=== PATIENT | female | born 1970 ===

== ENCOUNTER 2018-10-08 06:12 | Inpatient (IN) | payer SELFPAY ==
[2018-10-08 07:16] LABS: Basophils # (Auto) 0.1 K/mm3 (0.0-0.1); Basophils % (Auto) 1.1 % (0.0-1.8); Eosinophils # (Auto) 0.3 K/mm3 (0.0-0.4); Eosinophils % (Auto) 2.7 % (0.0-4.3); Hematocrit 29.8 % (30.3-42.9); Hemoglobin 9.6 gm/dl (10.1-14.3); Lymphocytes # (Auto) 1.3 K/mm3 (1.2-5.4); Lymphocytes % (Auto) 12.5 % (13.4-35.0); Mean Corpuscular HGB Conc 32 % (30-34); Monocytes # (Auto) 0.6 K/mm3 (0.0-0.8); Monocytes % (Auto) 5.7 % (0.0-7.3); Platelet Count 499 K/mm3 (140-440); Red Blood Count 4.48 M/mm3 (3.65-5.03)
[2018-10-08 07:18] LABS: Mean Corpuscular Volume 66 fl (79-97)
[2018-10-08] MEDS ORDERED: NITRO-BID 2% TP ONE (07:29)
[2018-10-08 07:35] LABS: Albumin 4.1 g/dL (3.9-5); Calcium 9.2 mg/dL (8.4-10.2)
[2018-10-08] MEDS ORDERED: LASIX IV ONE (07:38)
[2018-10-08] MEDS ORDERED: NORCO 5/325 PO ONE (07:39)
--- NOTE | 2018-10-08 07:43 | Emergency Department Report ---
ED Shortness of Breath HPI - General Chief Complaint: Dyspnea/Respdistress Stated Complaint: SOB Time Seen by Provider: 10/08/18 07:27 Source: patient, old records reviewed Mode of arrival: Ambulatory Limitations: No Limitations - History of Present Illness Initial Comments: 48-year-old female has had a history of CHF with most recent EF on echocardiogr am of 35-40%, severe concentric LDH, hypertension, previous CVA presents complaining of shortness of breath since last night. Patient woke up this shortness of breath orthopnea, PND, dyspnea on exertion. She has a cough productive of clear sputum since yesterday she took Mucinex D to help with her symptoms thinks that exacerbated her breathing. She feels like the mucous production has decreased taken his medication. She has been out of her Lasix for 2 months. She stopped her losartan 2 months ago due to a a recall in the medication and did not follow-up with her doctor for medication placement. She is compliant with her other medication. Primary care doctor [facility]. [employer] affiliated with [facility] As per medical record patient had a cardiac cath during her admission here February 2018 that showed normal coronary arteries. - Related Data Previous Rx's Medication Instructions Recorded Last Taken Type Aspirin [Aspirin BABY CHEW TAB] 81 mg PO QDAY #30 tab.chew 02/23/18 Unknown Rx Carvedilol [Coreg] 25 mg PO BID #60 tablet 02/23/18 Unknown Rx Furosemide [Lasix TAB] 20 mg PO QDAY #30 tablet 02/23/18 Unknown Rx HYDROcodone/APAP 5-325 [[place] 2 each PO Q6H PRN #12 tablet 02/23/18 Unknown Rx 5-325 mg TAB] Losartan [Cozaar] 100 mg PO QDAY #30 tablet 02/23/18 Unknown Rx Pantoprazole [Protonix TAB] 40 mg PO QDAY #30 tablet 02/23/18 Unknown Rx Spironolactone [Aldactone] 25 mg PO QDAY #30 tablet 02/23/18 Unknown Rx amLODIPine [Norvasc] 10 mg PO QDAY #30 tablet 02/23/18 Unknown Rx Allergies Allergy/AdvReac Type Severity Reaction Status Date / Time shellfish derived Allergy Unknown Verified 02/22/18 09:55 lisinopril AdvReac cough Verified 02/19/18 07:55 ED Review of Systems ROS: Stated complaint: SOB Other details as noted in HPI Comment: All other systems reviewed and negative ED Past Medical Hx - Past Medical History Previous Medical History?: Yes Hx Hypertension: Yes Hx CVA: Yes Hx Congestive Heart Failure: Yes Hx Diabetes: No Hx Asthma: No Hx COPD: No Hx Dementia: No Hx HIV: No - Surgical History Past Surgical History?: Yes Additional Surgical History: tubal ligation - Social History Smoking Status: Never Smoker Substance Use Type: None - Medications Home Medications: Home Medications Medication Instructions Recorded Confirmed Last Taken Type Aspirin [Aspirin BABY CHEW TAB] 81 mg PO QDAY #30 tab.chew 02/23/18 Unknown Rx Carvedilol [Coreg] 25 mg PO BID #60 tablet 02/23/18 Unknown Rx Furosemide [Lasix TAB] 20 mg PO QDAY #30 tablet 02/23/18 Unknown Rx HYDROcodone/APAP 5-325 [[place] 2 each PO Q6H PRN #12 tablet 02/23/18 Unknown Rx 5-325 mg TAB] Losartan [Cozaar] 100 mg PO QDAY #30 tablet 02/23/18 Unknown Rx Pantoprazole [Protonix TAB] 40 mg PO QDAY #30 tablet 02/23/18 Unknown Rx Spironolactone [Aldactone] 25 mg PO QDAY #30 tablet 02/23/18 Unknown Rx amLODIPine [Norvasc] 10 mg PO QDAY #30 tablet 02/23/18 Unknown Rx ED Physical Exam - General Limitations: No Limitations - Other Other exam information: General: No limitations, patient is alert in no acute distress Head exam: Atraumatic, normocephalic Eyes exam: Normal appearance ENT: Moist mucous membrane, normal oropharynx Neck exam: Normal inspection, full range of motion, no meningismus nontender Respiratory exam: No tachypnea or accessory muscle use at rest and while oxygen. Mild right sided intermittent wheezing Cardiovascular: Normal rate and rhythm, normal heart sounds Abdomen: Soft, nondistended, and nontender, with normal bowel sounds, no rebound, or guarding Extremity: Full range of motion normal inspection no deformity, no calf tenderness or edema Back: Normal Inspection, full range of motion, no tenderness Neurologic: Alert, oriented x3, cranial nerves intact, no motor or sensory d eficit Psychiatric: normal affect, normal mood Skin: Warm, dry, intact ED Course Vital Signs 10/08/18 10/08/18 06:15 06:32 Temperature 98.1 F Pulse Rate 109 H Respiratory 20 28 H Rate Blood Pressure 215/149 O2 Sat by Pulse 98 Oximetry ED Medical Decision Making - Lab Data Result diagrams: 10/08/18 06:47 10/08/18 06:47 Lab Results 10/08/18 10/08/18 10/08/18 Range/Units 06:47 06:47 06:47 WBC 10.5 (4.5-11.0) K/mm3 RBC 4.48 (3.65-5.03) M/mm3 Hgb 9.6 L (10.1-14.3) gm/dl Hct 29.8 L (30.3-42.9) % MCV 66 L (79-97) fl MCH 22 L (28-32) pg MCHC 32 (30-34) % RDW 20.0 H (13.2-15.2) % Plt Count 499 H (140-440) K/mm3 Lymph % (Auto) 12.5 L (13.4-35.0) % [place] % (Auto) 5.7 (0.0-7.3) % Eos % (Auto) 2.7 (0.0-4.3) % Baso % (Auto) 1.1 (0.0-1.8) % Lymph # 1.3 (1.2-5.4) K/mm3 [place] # 0.6 (0.0-0.8) K/mm3 Eos # 0.3 (0.0-0.4) K/mm3 Baso # 0.1 (0.0-0.1) K/mm3 Seg Neutrophils % 78.0 H (40.0-70.0) % Seg Neutrophils # 8.2 H (1.8-7.7) K/mm3 Sodium 140 (137-145) mmol/L Potassium 4.1 (3.6-5.0) mmol/L Chloride 105.1 (98-107) mmol/L Carbon Dioxide 22 (22-30) mmol/L Anion Gap 17 mmol/L BUN 15 (7-17) mg/dL Creatinine 1.1 (0.7-1.2) mg/dL Estimated GFR 53 ml/min BUN/Creatinine Ratio 14 % Glucose 104 H (65-100) mg/dL Calcium 9.2 (8.4-10.2) mg/dL Total Bilirubin 0.40 (0.1-1.2) mg/dL AST 10 (5-40) units/L ALT 8 (7-56) units/L Alkaline Phosphatase 75 (35-129) units/L Troponin T < 0.010 (0.00-0.029) ng/mL NT-Pro-B Natriuret Pep 1980 H (0-450) pg/mL Total Protein 7.1 (6.3-8.2) g/dL Albumin 4.1 (3.9-5) g/dL Albumin/Globulin Ratio 1.4 % - EKG Data -: EKG Interpreted by Ok EKG shows normal: sinus rhythm, axis (qrs 34), QRS complexes (qrsd 93), ST-T waves (no stemi, pvcs, lat t wave inv, lvh) Rate: normal (97) - EKG Data When compared to previous EKG there are: no significant change - Radiology Data Radiology results: report reviewed PROCEDURE: XR CHEST 1V AP TECHNIQUE: Chest radiograph single view. HISTORY: SOB COMPARISONS: 02/19/2018 . FINDINGS: No mediastinal shift. Cardiac silhouette is not enlarged. No pneumothorax or effusion. Patchy right basilar and perihilar opacities. No acute skeletal findings. IMPRESSION: Patchy right basilar and perihilar opacities may be infectious. Pulmonary scarring and superimposition of structures could appear similar. Consider PA and lateral chest radiographic follow-up. - Medical Decision Making pt with elevated high blood pressure history of CHF and diuretic and BP medication noncompliance. Treated with Nitropaste and IV Lasix. Chest x-ray report suggestive of possible right-sided infiltrate. Patient cultured and Rocephin and azithromycin ordered. One DuoNeb ordered for mild wheezing. Plan to admit to the hospitalist service for further management. - Differential Diagnosis CHF, bronchitis, pneumonia Critical Care Time: No Critical care attestation.: If time is entered above; I have spent that time in minutes in the direct care of this critically ill patient, excluding procedure time. ED Disposition Clinical Impression: Acute exacerbation of CHF (congestive heart failure), Pneumonia, Uncontrolled hypertension, Noncompliance with medication regimen Disposition: OP ADMIT IP TO THIS HOSP Is pt being admited?: Yes Condition: Stable Time of Disposition: 08:14 (DR Fay/[facility])
--- NOTE | 2018-10-08 07:47 | XRay Report ---
PROCEDURE: XR CHEST 1V AP TECHNIQUE: Chest radiograph single view. HISTORY: SOB COMPARISONS: 02/19/2018 . FINDINGS: No mediastinal shift. Cardiac silhouette is not enlarged. No pneumothorax or effusion. Patchy right b asilar and perihilar opacities. No acute skeletal findings. IMPRESSION: Patchy right basilar and perihilar opacities may be infectious. Pulmonary scarring and superimpositio n of structures could appear similar. Consider PA and lateral chest radiographic follow-up. This document is electronically signed by Ernesto Dunn MD., October 08 2018 07:45:22 AM ET
[2018-10-08] MEDS ORDERED: ROCEPHIN/NS 1 GM/50 ML 1 GM/50 ML BAG IV ONE (07:56)
[2018-10-08] MEDS ORDERED: ZITHROMAX 500 MG in NACL 0.9% 250ML 250 ML IV ONE (07:56)
[2018-10-08] MEDS ORDERED: DUONEB *Not for PRN Use IH ONE (07:57)
--- NOTE | 2018-10-08 10:25 | History and Physical Report ---
History of Present Illness Date of examination: 10/08/18 Date of admission: 10/08/18 Chief complaint: SOB History of present illness: 48-year-old female has had a history of CHF with most recent EF on echocardiogram of 35-40%, severe concentric LDH, hypertension, previous CVA presented with complaining of shortness of breath since last night and a cough productive of clear sputum since yesterday. Patient woke up this morning with shortness of breath orthopnea. She took Mucinex D to help with her symptoms but thinks that exacerbated her breathing. She has been out of her Lasix for 2 months, stopped her losartan 2 months ago and did not follow-up with her doctor for medication placement. She denies any fever or chills. She is getting admitted for CHF exacerbation. Past History Past Medical History: hypertension, CHF Past Surgical History: Tubal ligation Social history: denies: smoking, alcohol abuse, prescription drug abuse Family history: other (Mother - CHF) Review of System: Constitutional: no fever, no chills, no weight loss Ears, eyes, nose, mouth and throat: no nasal congestion, no nasal discharge, no sinus pressure, no vision change, no red eye. Neck: No neck pain or rigidity. Cardiovascular: No chest pain, + orthopnea, no palpitations, no leg swelling Respiratory: +shortness of breath, + cough, no congestion, no wheezing Gastrointestinal: no abdominal pain, no nausea, no vomiting Genitourinary : no dysuria, no hematuria Musculoskeletal: no joint swelling or muscle ache Integumentary: no rash, no pruritis Neurological: no parathesias, no numbness, no tingling Endocrine: no cold or heat intolerance, no polyuria or polydipsia Hematologic/Lymphatic: no easy bruising, no easy bleeding, no gland swelling Allergic/Immunologic: no urticaria, no angioedema. Medications and Allergies Allergies Allergy/AdvReac Type Severity Reaction Status Date / Time shellfish derived Allergy Unknown Verified 02/22/18 09:55 lisinopril AdvReac cough Verified 02/19/18 07:55 Home Medications Medication Instructions Recorded Confirmed Last Taken Type Aspirin [Aspirin BABY CHEW TAB] 81 mg PO QDAY #30 tab.chew 10/09/18 Unknown Rx AtorvaSTATin [Lipitor] 40 mg PO QHS #30 tab 10/09/18 Unknown Rx Carvedilol [Coreg] 25 mg PO BID #60 tablet 10/09/18 Unknown Rx Furosemide [Lasix TAB] 20 mg PO QDAY #30 tablet 10/09/18 Unknown Rx Losartan [Cozaar] 100 mg PO QDAY #30 tablet 10/09/18 Unknown Rx Pantoprazole [Protonix TAB] 40 mg PO QDAY #30 tablet 10/09/18 Unknown Rx Spironolactone [Aldactone] 25 mg PO QDAY #30 tablet 10/09/18 Unknown Rx amLODIPine [Norvasc] 10 mg PO QDAY #30 tablet 10/09/18 Unknown Rx Exam - Physical Exam Narrative exam: GENERAL: well-developed and obese Female lying on bed appeared to be in no discomfort. HEENT: Normocephalic. Atraumatic. No conjunctival congestion or icterus. Patient has moist mucous membranes. NECK: Supple. Trachea midline. CHEST/LUNGS: few crackles auscultated bilaterally, breathing nonlabored. No wheezes. HEART/CARDIOVASCULAR: Regular in rate and rhythm. S1 and S2 positive. ABDOMEN: Abdomen is soft, nontender. Patient has normal bowel sounds. SKIN: There is no rash. Warm and dry. NEURO: No focal motor deficit. Follows command. MUSCULOSKELETAL: No joint effusion or tenderness. EXTRIMITY: No edema, no cyanosis or clubbing. PSYCH: Cooperative. - Constitutional Vitals: Temp Pulse Resp BP Pulse Ox 98.1 F 78 15 143/89 93 10/08/18 06:15 10/08/18 10:00 10/08/18 10:00 10/08/18 10:00 10/08/18 10:00 Results - Labs CBC & Chem 7: 10/08/18 06:47 10/09/18 05:01 Labs: Abnormal lab results 10/08/18 10/08/18 Range/Units 06:47 06:47 Hgb 9.6 L (10.1-14.3) gm/dl Hct 29.8 L (30.3-42.9) % MCV 66 L (79-97) fl MCH 22 L (28-32) pg RDW 20.0 H (13.2-15.2) % Plt Count 499 H (140-440) K/mm3 Lymph % (Auto) 12.5 L (13.4-35.0) % Seg Neutrophils % 78.0 H (40.0-70.0) % Seg Neutrophils # 8.2 H (1.8-7.7) K/mm3 Glucose 104 H (65-100) mg/dL NT-Pro-B Natriuret Pep 1980 H (0-450) pg/mL - Imaging and Cardiology Chest x-ray: report reviewed Assessment and Plan /Acute combined systolic and diastolic heart failure ECHO reveals sys fxn mod decreased with EF 35-40%, severe concentric LVH - on 02/26 will consult Cardiology, Fluid restriction to 1500 mL per day, iv diuretics, monitor ins/os left cardiac cath on last admission showed normal coronaries /Hypertension, accelerated. continue amlodipine in addition to ARB, hold BB for now /Possible RLL PNA, cont levaquin for now /Microcytic anemia Most likely iron deficiency anemia based on previous work up, monitor h/h /medication noncompliance, counseled /DVT prophylaxis with lovenox subcutaneous Radiological data: CXR: Patchy right basilar and perihilar opacities may be infectious. Pulmonary scarring and superimposition of structures could appear similar. Consider PA and lateral chest radiographic follow-up.
--- NOTE | 2018-10-08 10:25 | Progress Note ---
Subjective Date of service: 10/08/18 Objective - Constitutional Vitals: Vital Signs - 12hr 10/08/18 10/08/18 10/08/18 06:15 06:32 07:32 Temperature 98.1 F Pulse Rate 109 H 95 H Respiratory 20 28 H 18 Rate Blood Pressure 215/149 O2 Sat by Pulse 98 98 Oximetry 10/08/18 10/08/18 10/08/18 07:34 08:00 08:54 Temperature Pulse Rate 83 87 Respiratory 17 18 Rate Blood Pressure 184/131 176/116 O2 Sat by Pulse 99 Oximetry 10/08/18 10/08/18 10/08/18 09:00 09:30 10:00 Temperature Pulse Rate 98 H 83 78 Respiratory 16 15 15 Rate Blood Pressure 184/131 156/99 143/89 O2 Sat by Pulse 93 91 93 Oximetry - Labs CBC & Chem 7: 10/08/18 06:47 10/08/18 06:47 Labs: Abnormal lab results 10/08/18 10/08/18 Range/Units 06:47 06:47 Hgb 9.6 L (10.1-14.3) gm/dl Hct 29.8 L (30.3-42.9) % MCV 66 L (79-97) fl MCH 22 L (28-32) pg RDW 20.0 H (13.2-15.2) % Plt Count 499 H (140-440) K/mm3 Lymph % (Auto) 12.5 L (13.4-35.0) % Seg Neutrophils % 78.0 H (40.0-70.0) % Seg Neutrophils # 8.2 H (1.8-7.7) K/mm3 Glucose 104 H (65-100) mg/dL NT-Pro-B Natriuret Pep 1980 H (0-450) pg/mL
[2018-10-08] MEDS ORDERED: BABY ASPIRIN ONE (11:03)
--- NOTE | 2018-10-08 11:36 | Consultation ---
History of Present Illness Consult date: 10/08/18 Requesting physician: ALEJANDRO RODRIGUEZ Consult reason: congestive heart failure History of present illness: Ms. Ferrera is a 48 y/o female with a history of chronic HFrEF, hypertension and a prior CVA who presented to the ED with SOB that worsened over the past day with minimal activity. She does not regularly follow with a provider in our office, but is known to us from a previous stay at [facility]. She denies CP and swelling. She has been compliant with her medication regimen with the exception of losartan - she received notice that her batch of this drug was on recall, but she was never prescribed an alternative. In the ED, a CXR was suspicious for pneumonia and her EKG was unremarkable. She received a dose of Lasix in the ED, which improved her breathing. An echocardiogram on 02/20/2018 found an EF of 35 to 40 percent and severe concentric LVH. A cardiac catheterization on 02/19/2018 found normal coronaries. Past History Past Medical History: heart failure, hypertension, stroke (h/o) Medications and Allergies Allergies Allergy/AdvReac Type Severity Reaction Status Date / Time shellfish derived Allergy Unknown Verified 02/22/18 09:55 lisinopril AdvReac cough Verified 02/19/18 07:55 Home Medications Medication Instructions Recorded Confirmed Last Taken Type Aspirin [Aspirin BABY CHEW TAB] 81 mg PO QDAY #30 tab.chew 02/23/18 Unknown Rx Carvedilol [Coreg] 25 mg PO BID #60 tablet 02/23/18 Unknown Rx Furosemide [Lasix TAB] 20 mg PO QDAY #30 tablet 02/23/18 Unknown Rx HYDROcodone/APAP 5-325 [[place] 2 each PO Q6H PRN #12 tablet 02/23/18 Unknown Rx 5-325 mg TAB] Losartan [Cozaar] 100 mg PO QDAY #30 tablet 02/23/18 Unknown Rx Pantoprazole [Protonix TAB] 40 mg PO QDAY #30 tablet 02/23/18 Unknown Rx Spironolactone [Aldactone] 25 mg PO QDAY #30 tablet 02/23/18 Unknown Rx amLODIPine [Norvasc] 10 mg PO QDAY #30 tablet 02/23/18 Unknown Rx Active Meds: Active Medications Amlodipine Besylate (Norvasc) 10 mg PO QDAY ALPESH Aspirin (Baby Aspirin) 81 mg PO QDAY ALPESH Furosemide (Lasix) 40 mg IV BID@0600,1800 ALPESH Losartan Potassium (Cozaar) 100 mg PO QDAY LAPESH Pantoprazole Sodium (Protonix) 40 mg PO QDAY ALPESH Review of Systems All systems: negative Ears, nose, mouth and throat: deferred Breasts: deferred Genitourinary Female: other (Deferred) Menstruation: other (Deferred) Rectal: other (Deferred) Physical Examination Last Vital Signs Temp 98.1 F 10/08/18 06:15 Pulse 78 10/08/18 10:00 Resp 15 10/08/18 10:00 BP 143/89 10/08/18 10:00 Pulse Ox 93 10/08/18 10:00 General appearance: no acute distress HEENT: Positive: PERRL Neck: Positive: neck supple Cardiac: Positive: Reg Rate and Rhythm Lungs: Positive: Normal Exam Neuro: Positive: Grossly Intact Abdomen: Positive: Unremarkable Female genitourinary: deferred Skin: Positive: Clear Musculoskeletal: Normal Range of Motion Extremities: Present: normal Results 10/08/18 06:47 10/08/18 06:47 Cardiac Enzymes 10/08/18 Range/Units 06:47 AST 10 (5-40) units/L CBC 10/08/18 Range/Units 06:47 WBC 10.5 (4.5-11.0) K/mm3 RBC 4.48 (3.65-5.03) M/mm3 Hgb 9.6 L (10.1-14.3) gm/dl Hct 29.8 L (30.3-42.9) % Plt Count 499 H (140-440) K/mm3 Lymph # 1.3 (1.2-5.4) K/mm3 [place] # 0.6 (0.0-0.8) K/mm3 Eos # 0.3 (0.0-0.4) K/mm3 Baso # 0.1 (0.0-0.1) K/mm3 Comprehensive Metabolic Panel 10/08/18 Range/Units 06:47 Sodium 140 (137-145) mmol/L Potassium 4.1 (3.6-5.0) mmol/L Chloride 105.1 (98-107) mmol/L Carbon Dioxide 22 (22-30) mmol/L BUN 15 (7-17) mg/dL Creatinine 1.1 (0.7-1.2) mg/dL Glucose 104 H (65-100) mg/dL Calcium 9.2 (8.4-10.2) mg/dL AST 10 (5-40) units/L ALT 8 (7-56) units/L Alkaline Phosphatase 75 (35-129) units/L Total Protein 7.1 (6.3-8.2) g/dL Albumin 4.1 (3.9-5) g/dL - Imaging and Cardiology Echo: report reviewed (EF 35 to 40%, severe concentric LVH) Cardiac cath: report reviewed (Normal coronaries) EKG interpretations - EKG Sinus rhythms and dysrhythmias: sinus rhythm Ventricular dysrhythmias: ventricular premature com Chamber hypertrophy or enlargement: left atrial enlargement, left ventricular hypertro Assessment and Plan Patient is a 48 y/o female with a history of chronic HFrEF, hypertension and a prior CVA. She presented to the ED with worsening SOB. Agree with continuing losartan, Norvasc, aspirin and Lasix. Will resume Coreg. Will hold spironolactone with administration of IV Lasix. Patient will likely need to be switched from losartan to another ARB at discharge due to recall of her batch of medicine. Will repeat echo. Patient seen in conjunction with Dr. Gould, who agrees with assessment and plan. - Patient Problems (1) Heart failure with reduced ejection fraction Current Visit: No Status: Acute (2) Pneumonia Current Visit: Yes Status: Suspected (3) Uncontrolled hypertension Current Visit: Yes Status: Chronic (4) Cardiomyopathy Current Visit: No Status: Chronic (5) LVH (left ventricular hypertrophy) due to hypertensive disease Current Visit: No Status: Chronic Qualifiers: Heart failure presence: with heart failure Qualified Code(s): I11.0 - Hypertensive heart disease with heart failure
[2018-10-08] MEDS: BABY ASPIRIN PO SCH (11:42)
[2018-10-08] MEDS: COREG PO SCH ×2 (14:21→21:20)
[2018-10-08] MEDS ORDERED: APRESOLINE IV PRN (15:00)
[2018-10-08] MEDS: LASIX IV SCH (17:17)
[2018-10-08] MEDS ORDERED: COREG PO SCH (22:00)
[2018-10-09] MEDS: LASIX IV SCH (06:24)
[2018-10-09] MEDS: COREG PO SCH (09:45)
[2018-10-09] MEDS: BABY ASPIRIN PO SCH (09:45)
[2018-10-09] MEDS ORDERED: COZAAR PO SCH (10:00)
[2018-10-09] MEDS ORDERED: NORVASC PO SCH (10:00)
[2018-10-09] MEDS ORDERED: PROTONIX PO SCH (10:00)
--- NOTE | 2018-10-09 11:37 | Progress Note ---
Assessment and Plan F/u echo reviewed - EF 35-40%, grade 2 diastolic dysfunction, dilated LV, dilated LA, mild to mod MR. In setting of NSVT, cont coreg and monitor electrolytes. Pt asymptomatic at this time. Resume losartan and aldactone. Cont all other present cardiac management. Currently stable cardiac status. Pt may discharge home from cardiology stand point. At discharge, recommend conversion of IV lasix to PO lasix 40mg daily. Recommend follow up in our office with Dr. Gould within 3-5 days of hospital discharge ([phone]). The patient has been seen in conjunction with Dr. Ball who agrees with the assessment and plan of care. - Patient Problems (1) Acute HFrEF (heart failure with reduced ejection fraction) Current Visit: Yes Status: Acute (2) Nonischemic cardiomyopathy Current Visit: Yes Status: Chronic (3) Uncontrolled hypertension Current Visit: Yes Status: Chronic (4) Noncompliance with medication regimen Current Visit: Yes Status: Chronic (5) Anemia Current Visit: Yes Status: Chronic (6) History of angiotensin converting enzyme inhibitor (CARMITA-I) allergy Current Visit: Yes Status: Chronic (7) History of CVA (cerebrovascular accident) Current Visit: Yes Status: Chronic Subjective Date of service: 10/09/18 Principal diagnosis: HF Interval history: pt resting in bed, states she is feeling much better today, SOB improved. tele reviewed - in SR with bouts of NSVT overnight, longest run 18 beats, pt asymptomatic. Objective Last Vital Signs Temp 98.3 F 10/09/18 04:58 Pulse 76 10/09/18 04:58 Resp 18 10/09/18 04:58 BP 151/95 10/09/18 04:58 Pulse Ox 97 10/09/18 04:58 - Physical Examination General: No Apparent Distress HEENT: Positive: PERRL Neck: Positive: neck supple Cardiac: Positive: Reg Rate and Rhythm, S1/S2 Lungs: Positive: Decreased Breath Sounds Neuro: Positive: Grossly Intact Abdomen: Positive: Unremarkable Skin: Positive: Clear Musculoskeletal: Normal Range of Motion Extremities: Present: normal - Labs and Meds Comprehensive Metabolic Panel 10/09/18 10/09/18 Range/Units 00:02 05:01 Sodium 140 (137-145) mmol/L Potassium 3.4 L 3.5 L (3.6-5.0) mmol/L Chloride 103.9 (98-107) mmol/L Carbon Dioxide 23 (22-30) mmol/L BUN 16 (7-17) mg/dL Creatinine 1.1 (0.7-1.2) mg/dL Glucose 92 (65-100) mg/dL Calcium 9.0 (8.4-10.2) mg/dL - Imaging and Cardiology Echo: report reviewed (EF 35 to 40%, severe concentric LVH) Cardiac cath: report reviewed (02/2018 Normal coronaries) - Telemetry EKG Rhythm: Sinus Rhythm - EKG Sinus rhythms and dysrhythmias: sinus rhythm Ventricular dysrhythmias: ventricular premature com Chamber hypertrophy or enlargement: left atrial enlargement, left ventricular hypertro
[2018-10-09] MEDS ORDERED: ALDACTONE PO SCH (11:43)
[2018-10-09 11:59] VITALS: BP 152/94
--- NOTE | 2018-10-09 13:58 | Discharge Summary ---
Providers - Providers Date of Admission: 10/08/18 10:36 Date of discharge: 10/09/18 Attending physician: ALEJANDRO RODRIGUEZ 10/08/18 10:32 Consult to Physician [CONS] Routine Comment: Consulting Provider: STEPHANIE SMITH Physician Instructions: Reason For Exam: chf exacerbation [facility] Condition: Stable Pertinent studies: CXR 2D echo Hospital course: 48-year-old female has had a history of CHF with most recent EF on echocardiogram of 35-40%, severe concentric LDH, hypertension, previous CVA presented with complaining of shortness of breath and a cough productive of clear sputum. She has been out of her Lasix for 2 months, stopped her losartan 2 months ago and did not follow-up with her doctor for medication placement. She was admitted for CHF exacerbation and possiblr PNA. Discharge diagnosis and management: /Acute combined systolic and diastolic heart failure ECHO revealed mod decreased with EF 35-40%, grade 2 diastolic dysfunction Consulted Cardiology, maintained Fluid restriction to 1500 mL per day, monitor ins/os, given iv diuretics, left cardiac cath on last admission showed normal coronaries Symptom improved with medical Mx, medications adjusted per cardiology recommendation She was discharged in stable condition with outpt follow up /Hypertension, accelerated. stable on d/c, BP meds adjusted /Possible RLL PNA, treated with levaquin /Microcytic anemia Most likely iron deficiency anemia based on previous work up, monitor h/h /Medication noncompliance, counseled /DVT prophylaxis with lovenox subcutaneous Radiological data: CXR: Patchy right basilar and perihilar opacities may be infectious. Pulmonary scarring and superimposition of structures could appear similar. Consider PA and lateral chest radiographic follow-up. Disposition: TO HOME OR SELFCARE Time spent for discharge: 34 minutes Core Measure Documentation - Palliative Care Palliative Care/ Comfort Measures: Not Applicable - Core Measures Any of the following diagnoses?: heart failure - Heart Failure Discharge Requirements CARMITA/ARB for LVSD if EF <40%: Yes Beta jaime at discharge: Yes Exam - Physical Exam Narrative exam: GENERAL: well-developed and well-nourished lying on bed appeared to be in no discomfort. HEENT: Normocephalic. Atraumatic. No conjunctival congestion or icterus. Pa tient has moist mucous membranes. NECK: Supple. Trachea midline. CHEST/LUNGS: Clear to auscultated bilaterally, breathing nonlabored. No wheezes crackles or rhonchi. HEART/CARDIOVASCULAR: Regular in rate and rhythm. S1 and S2 positive. ABDOMEN: Abdomen is soft, nontender. Patient has normal bowel sounds. SKIN: There is no rash. Warm and dry. NEURO: No focal motor deficit. Follows command. MUSCULOSKELETAL: No joint effusion or tenderness. EXTRIMITY: No edema, no cyanosis or clubbing. PSYCH: Cooperative. - Constitutional Vitals: Temp Pulse Resp BP Pulse Ox 97.9 F 74 18 152/94 98 10/09/18 11:58 10/09/18 12:40 10/09/18 11:58 10/09/18 12:40 10/09/18 11:58 Plan Activity: advance as tolerated Weight Bearing Status: Weight Bear as Tolerated Diet: low fat, low salt Special Instructions: record daily weights, record daily BP diary [facility] [Primary Care Provider] - 3-5 Days DAISY RAMÍREZ MD [Staff Physician] - 7 Days Forms: Work/School Release Form Prescriptions: AtorvaSTATin [Lipitor] 40 mg PO QHS #30 tab Spironolactone [Aldactone] 25 mg PO QDAY #30 tablet Aspirin [Aspirin BABY CHEW TAB] 81 mg PO QDAY #30 tab.chew Carvedilol [Coreg] 25 mg PO BID #60 tablet Losartan [Cozaar] 100 mg PO QDAY #30 tablet Furosemide [Lasix TAB] 20 mg PO QDAY #30 tablet amLODIPine [Norvasc] 10 mg PO QDAY #30 tablet Pantoprazole [Protonix TAB] 40 mg PO QDAY #30 tablet
[2018-10-09] MEDS ORDERED: K-DUR PO SCH (14:00)
[2018-10-10] MEDS ORDERED: COZAAR PO SCH (10:00)
== END 2018-10-09 17:12 | disposition home or self-care (01) | DRG 291 ==
LOC: ED 06:12 → 4A 10:36
PROVIDERS: ADMIT Internal Medicine; ATTEND Internal Medicine
DX: I11.0 Hypertensive heart disease with heart failure (principal); J18.1 Lobar pneumonia, unspecified organism; I47.2 Ventricular tachycardia; I42.9 Cardiomyopathy, unspecified; D50.9 Iron deficiency anemia, unspecified; I50.43 Acute on chronic combined systolic (congestive) and diastolic (congestive) heart failure; I34.0 Nonrheumatic mitral (valve) insufficiency; Z86.73 Personal history of transient ischemic attack (TIA), and cerebral infarction without residual deficits; Z79.82 Long term (current) use of aspirin; Z98.51 Tubal ligation status; Z91.14 Patient's other noncompliance with medication regimen
CPT/HCPCS: 36415; 71045; 80048; 80053; 83735; 83880; 84132; 84484; 85025; 87040; 87116; 93005; 93010; 93306; 94640; 96365; 96375; G0378; J0456; J0696; J1940; J7050

== ENCOUNTER 2021-07-28 14:10 | Emergency (ER) | payer SELFPAY ==
[2021-07-28] MEDS ORDERED: cloNIDine 0.2 MG TAB PO ONE (14:31)
--- NOTE | 2021-07-28 14:47 | Emergency Department Report ---
ED General Adult HPI - General Chief complaint: High BP Stated complaint: SOB/HBP Time Seen by Provider: 07/28/21 14:23 Source: patient, old records reviewed (2019 admission for CHF, hypertension, med noncompliance, cardiac cath 2007) Mode of arrival: Ambulatory Limitations: No Limitations - History of Present Illness Initial comments: 51-year-old female has had a history of CHF with most recent EF on echocardiogram of 35-40% with grade 2 diastolic dysfunction, severe concentric LDH, hypertension, and previous CVA presents to the hospital with uncontrolled hypertension, 4/10 headache, and mild shortness of breath with exertion. Patient takes 5 blood pressure medication and has been out of 2 of them x1 week. Last dose of her other medications were this morning. She was finally able to see her PMD at [facility] after someone else canceled the appointment and she was referred to the ED for evaluation due to elevated BP. Patient complains of a 4/10 right posterior headache worse with light and improve sitting in a dark room. She also complains of shortness of breath with exertion and mild orthopnea and PND at times. As per medical record review patient was admitted here in October 2018 for CHF exacerbation and uncontrolled hypertension secondary to medication noncompliance. She had a heart cath February 2018 that showed normal coronary arteries Patient's medications include Norvasc 10 mg daily Losartan 100 mg daily Lasix 20 mg daily Spironolactone 25 mg daily Coreg 25 mg twice daily Patient has been out of Norvasc and spironolactone x1 week - Related Data Previous Rx's Medication Instructions Recorded Last Taken Type Aspirin [Aspirin BABY CHEW TAB] 81 mg PO QDAY #30 tab.chew 10/09/18 Unknown Rx AtorvaSTATin [Lipitor] 40 mg PO QHS #30 tab 10/09/18 Unknown Rx Losartan [Cozaar] 100 mg PO QDAY #30 tablet 10/09/18 Unknown Rx Pantoprazole [Protonix TAB] 40 mg PO QDAY #30 tablet 10/09/18 Unknown Rx carvediloL [Coreg] 25 mg PO BID #60 tablet 10/09/18 Unknown Rx Furosemide [Lasix TAB] 20 mg PO QDAY #30 tablet 07/28/21 Unknown Rx Spironolactone [Aldactone] 25 mg PO QDAY #30 tablet 07/28/21 Unknown Rx amLODIPine 10 mg PO QDAY #30 tablet 07/28/21 Unknown Rx Allergies Allergy/AdvReac Type Severity Reaction Status Date / Time shellfish derived Allergy Unknown Verified 02/22/18 09:55 lisinopril AdvReac cough Verified 02/19/18 07:55 ED Review of Systems ROS: Stated complaint: SOB/HBP Other details as noted in HPI Comment: All other systems reviewed and negative ED Past Medical Hx - Past Medical History Previous Medical History?: Yes Hx Hypertension: Yes Hx CVA: Yes Hx Congestive Heart Failure: Yes Hx Diabetes: No Hx Asthma: No Hx COPD: No Hx Dementia: No Hx HIV: No - Surgical History Past Surgical History?: Yes Additional Surgical History: tubal ligation - Social History Smoking Status: Never Smoker - Medications Home Medications: Home Medications Medication Instructions Recorded Confirmed Last Taken Type Aspirin [Aspirin BABY CHEW TAB] 81 mg PO QDAY #30 tab.chew 10/09/18 Unknown Rx AtorvaSTATin [Lipitor] 40 mg PO QHS #30 tab 10/09/18 Unknown Rx Losartan [Cozaar] 100 mg PO QDAY #30 tablet 10/09/18 Unknown Rx Pantoprazole [Protonix TAB] 40 mg PO QDAY #30 tablet 10/09/18 Unknown Rx carvediloL [Coreg] 25 mg PO BID #60 tablet 10/09/18 Unknown Rx Furosemide [Lasix TAB] 20 mg PO QDAY #30 tablet 07/28/21 Unknown Rx Spironolactone [Aldactone] 25 mg PO QDAY #30 tablet 07/28/21 Unknown Rx amLODIPine 10 mg PO QDAY #30 tablet 07/28/21 Unknown Rx ED Physical Exam - General Limitations: No Limitations - Other Other exam information: General: No acute distress Head: Atraumatic Eyes: normal appearance ENT: Moist mucous membranes Neck: Normal appearance, no midline tenderness, no nuchal rigidity Chest: Clear to auscultation bilaterally CV: Regular rate and rhythm Abdomen: Soft, normal bowel sounds, nontender, nondistended, no rebound or guarding Back: Normal inspection Extremity: Normal inspection, full range of motion Neuro: Alert O x 3, no facial asymmetry, speech clear, no gross motor sensory deficit Psych: Appropriate behavior Skin: No rash ED Course Vital Signs 07/28/21 07/28/21 07/28/21 14:16 15:17 15:19 Temperature 98.4 F Pulse Rate 95 H 80 Respiratory 18 17 Rate Blood Pressure 209/127 O2 Sat by Pulse 98 100 Oximetry 07/28/21 07/28/21 07/28/21 15:30 15:46 16:00 Temperature Pulse Rate 71 68 68 Respiratory 13 13 13 Rate Blood Pressure 191/98 160/95 163/98 O2 Sat by Pulse 99 98 100 Oximetry 07/28/21 07/28/21 07/28/21 16:16 16:30 16:46 Temperature Pulse Rate 65 67 60 Respiratory 15 19 23 Rate Blood Pressure 161/94 181/106 162/93 O2 Sat by Pulse 100 99 99 Oximetry - Reevaluation(s) Reevaluation #1: 07/28/21 16:53 Headache improved, BP improved. Patient asymptomatic ED Medical Decision Making - Lab Data Result diagrams: 07/28/21 15:20 07/28/21 15:20 Lab Results 07/28/21 07/28/21 07/28/21 Range/Units 15:20 15:20 Unknown WBC 9.2 (4.5-11.0) K/mm3 RBC 4.28 (3.65-5.03) M/mm3 Hgb 9.9 L (10.1-14.3) gm/dl Hct 30.7 (30.3-42.9) % MCV 72 L (79-97) fl MCH 23 L (28-32) pg MCHC 32 (30-34) % RDW 20.4 H (13.2-15.2) % Plt Count 406 (140-440) K/mm3 Lymph % (Auto) 19.4 (13.4-35.0) % [place] % (Auto) 7.7 H (0.0-7.3) % Eos % (Auto) 3.1 (0.0-4.3) % Baso % (Auto) 1.4 (0.0-1.8) % Lymph # (Auto) 1.8 (1.2-5.4) K/mm3 [place] # (Auto) 0.7 (0.0-0.8) K/mm3 Eos # (Auto) 0.3 (0.0-0.4) K/mm3 Baso # (Auto) 0.1 (0.0-0.1) K/mm3 Seg Neutrophils % 68.4 (40.0-70.0) % Seg Neutrophils # 6.3 (1.8-7.7) K/mm3 Sodium 138 (137-145) mmol/L Potassium 3.9 (3.6-5.0) mmol/L Chloride 105.5 (98-107) mmol/L Carbon Dioxide 20 L (22-30) mmol/L Anion Gap 16 mmol/L BUN 9 (7-17) mg/dL Creatinine 0.9 (0.6-1.2) mg/dL Estimated GFR > 60 ml/min BUN/Creatinine Ratio 10 % Glucose 85 (65-100) mg/dL Calcium 9.3 (8.4-10.2) mg/dL Magnesium 2.00 (1.7-2.3) mg/dL Total Bilirubin 0.40 (0.1-1.2) mg/dL AST 11 (5-40) units/L ALT 9 (7-56) units/L Alkaline Phosphatase 76 (35-129) units/L Troponin T < 0.010 (0.00-0.029) ng/mL NT-Pro-B Natriuret Pep 1179 H (0-900) pg/mL Total Protein 7.4 (6.3-8.2) g/dL Albumin 4.2 (3.9-5) g/dL Albumin/Globulin Ratio 1.3 % Urine Color Straw (Yellow) Urine Turbidity Clear (Clear) Urine pH 7.0 (5.0-7.0) Ur Specific [place] 1.008 (1.003-1.030) Urine Protein <15 mg/dl (Negative) mg/dL Urine Glucose (UA) Neg (Negative) mg/dL Urine Ketones Neg (Negative) mg/dL Urine Blood Neg (Negative) Urine Nitrite Neg (Negative) Urine Bilirubin Neg (Negative) Urine Urobilinogen < 2.0 (<2.0) mg/dL Ur Leukocyte Esterase Neg (Negative) Urine WBC (Auto) < 1.0 (0.0-6.0) /HPF Urine RBC (Auto) < 1.0 (0.0-6.0) /HPF U Epithel Cells (Auto) 1.0 (0-13.0) /HPF - EKG Data -: EKG Interpreted by Nd EKG shows normal: sinus rhythm, ST-T waves (LVH, PVCs, no STEMI) Rate: normal - EKG Data When compared to previous EKG there are: no significant change - Radiology Data Radiology results: report reviewed CHEST 2 VIEWS INDICATION / CLINICAL INFORMATION: sob. COMPARISON: 10/08/2018 FINDINGS: SUPPORT DEVICES: None. HEART / MEDIASTINUM: No significant abnormality. LUNGS / PLEURA: No significant pulmonary or pleural abnormality. No pneumot horax. ADDITIONAL FINDINGS: No significant additional findings. IMPRESSION: 1. No acute findings. - Medical Decision Making 51-year-old female presenting with uncontrolled hypertension secondary to medication noncompliance with mild symptoms of headache and shortness of breath. Symptoms improved with blood pressure reduction. No signs of hypertensive em ergency at time a ED evaluation. Patient will be provided a refill in her missing medication and is scheduled to follow-up with her PMD in 2 days. Cardiology outpatient referral will also be provided - Differential Diagnosis Hypertensive emergency, hypertensive urgency Critical Care Time: No Critical care attestation.: If time is entered above; I have spent that time in minutes in the direct care of this critically ill patient, excluding procedure time. ED Disposition Clinical Impression: Hypertensive urgency, Noncompliance with medication regimen, History of CHF (congestive heart failure) Disposition: 01 HOME / SELF CARE / HOMELESS Is pt being admited?: No Does the pt Need Aspirin: No Condition: Stable Instructions: Hypertension, Adult, [id number] Additional Instructions: Take the medication as prescribed. Follow-up with your doctor or doctor/clinic provided. Return if symptoms worsen as indicated by your discharge instructions. Prescriptions: Spironolactone [Aldactone] 25 mg PO QDAY #30 tablet amLODIPine 10 mg PO QDAY #30 tablet Furosemide [Lasix TAB] 20 mg PO QDAY #30 tablet Referrals: JEAN PAUL VIEIRA MD [Primary Care Provider] - 3-5 Days GUY SMITH MD [Staff Physician] - 3-5 Days Time of Disposition: 16:54
--- NOTE | 2021-07-28 14:53 | XRay Report ---
CHEST 2 VIEWS INDICATION / CLINICAL INFORMATION: sob. COMPARISON: 10/08/2018 FINDINGS: SUPPORT DEVICES: None. HEART / MEDIASTINUM: No significant abnormality. LUNGS / PLEURA: No significant pulmonary or pleural abnormality. No pneumothorax. ADDITIONAL FINDINGS: No significant additional findings. IMPRESSION: 1. No acute findings. Signer Name: Tomas Eubanks MD Signed: 07/28/2021 2:48 PM Workstation Name: [id number]
[2021-07-28 15:49] LABS: Basophils # (Auto) 0.1 K/mm3 (0.0-0.1); Basophils % (Auto) 1.4 % (0.0-1.8); Eosinophils # (Auto) 0.3 K/mm3 (0.0-0.4); Eosinophils % (Auto) 3.1 % (0.0-4.3); Hematocrit 30.7 % (30.3-42.9); Hemoglobin 9.9 gm/dl (10.1-14.3); Lymphocytes # (Auto) 1.8 K/mm3 (1.2-5.4); Lymphocytes % (Auto) 19.4 % (13.4-35.0); Mean Corpuscular HGB Conc 32 % (30-34); Mean Corpuscular Volume 72 fl (79-97); Monocytes # (Auto) 0.7 K/mm3 (0.0-0.8); Monocytes % (Auto) 7.7 % (0.0-7.3); Platelet Count 406 K/mm3 (140-440); Red Blood Count 4.28 M/mm3 (3.65-5.03)
[2021-07-28 15:53] LABS: Red Cell Distribution Width 20.4 % (13.2-15.2)
[2021-07-28 16:04] LABS: Bilirubin,Urine NEG (Negative); Blood,Urine NEG (Negative); Color,Urine Straw (Yellow); Protein,Urine <15 mg/dL mg/dL (Negative); RBC,Urine < 1.0 /HPF (0.0-6.0); Urobilinogen,Urine < 2.0 mg/dL (<2.0); WBC,Urine < 1.0 /HPF (0.0-6.0)
[2021-07-28 16:07] LABS: Alanine Aminotransferase 9 units/L (7-56); Albumin 4.2 g/dL (3.9-5); BUN/Creatinine Ratio 10; Blood Urea Nitrogen 9 mg/dL (7-17); Calcium 9.3 mg/dL (8.4-10.2); Hemolysis Index 18
[2021-07-28 18:48] VITALS: BP 156/89
--- NOTE | 2021-07-29 10:58 | Electrocardiograph Report ---
[facility] Test Date: 2021-07-28 Test Time: 14:50:32 Pat Name: HUDSON STEINBERG Department: Room: Gender: F Journeyman Pipe Fitter: JUDY : 1970 Requested By: ASHLEY FRANCO Order Number: [id number] Reading MD: Mariano De Measurements Intervals [place] Rate: 79 P: 46 ND: 176 QRS: -8 QRSD: 96 T: 80 QT: 426 QTc: 490 Interpretive Statements Sinus rhythm Multiple ventricular premature complexes Probable left atrial enlargement Left ventricular hypertrophy No previous ECG available for comparison Electronically Signed On 07-29-2021 10:58:21 EDT by Mariano De
== END 2021-07-28 18:59 | disposition home or self-care (01) ==
LOC: ED 14:10
DX: I16.0 Hypertensive urgency (principal); I11.0 Hypertensive heart disease with heart failure; I50.9 Heart failure, unspecified; Z86.73 Personal history of transient ischemic attack (TIA), and cerebral infarction without residual deficits; Z98.890 Other specified postprocedural states; Z79.899 Other long term (current) drug therapy; Z91.013 Allergy to seafood; Z91.09 Other allergy status, other than to drugs and biological substances
CPT/HCPCS: 36415; 71046; 80053; 81001; 83735; 83880; 84484; 85025; 93005; 99284